=== PATIENT | female | born 2000 | race Caucasian/White ===

== ENCOUNTER 2019-12-22 16:08 | Emergency (ER) | payer SELFPAY ==
[2019-12-22 16:26] VITALS: BP 116/78
[2019-12-22] MEDS ORDERED: LIDOCAINE 1% INJ-PF (10 MG/ML) 30 ML SDV INJ ONE (17:08)
[2019-12-22] MEDS ORDERED: CEFTRIAXONE INJ 250 MG VIAL IM ONE (17:08)
[2019-12-22] MEDS ORDERED: DOXYCYCLINE HYCLATE 100 MG TABLET PO ONE (17:13)
--- NOTE | 2019-12-22 17:19 | ER Document Report ---
ED GI/ - General Chief Complaint: STD Exposure Stated Complaint: STD CHECK Time Seen by Provider: 12/22/19 17:04 Primary Care Provider: [facility] [Provider Group] - Follow up as needed [facility] [Provider Group] - Follow up as needed [facility] [Provider Group] - Follow up as needed Mode of Arrival: Ambulatory Information source: Patient Notes: 19-year-old female presented to ED for complaint of a contact called her stating they had chlamydia and she needed to get tested. She states she is asymptomatic but she is living with someone else and she needs to make sure that she does not have an infection. We will get urine for GC and chlamydia and treat the patient. She will call tomorrow to find the results and then have her significant other treated if appropriate. - HPI Patient complains to provider of: Other - Sexual contact positive for chlamydia Onset: Other - Is her last contact with this person was 6 months ago Quality of pain: No pain Pain Level: Denies Vaginal bleeding (Compared to normal period): None Associated symptoms: None Exacerbated by: Denies Relieved by: Denies Similar symptoms previously: No Recently seen / treated by doctor: No - Related Data Allergies/Adverse Reactions: clarithromycin [From Biaxin] Allergy (Verified 12/22/19 17:03) Past Medical History - General Information source: Patient - Social History Smoking Status: Never Smoker Chew tobacco use (# tins/day): No Frequency of alcohol use: Occasional Drug Abuse: None Lives with: Family Family History: Reviewed & Not Pertinent Patient has suicidal ideation: No Patient has homicidal ideation: No - Past Medical History Cardiac Medical History: Reports: None Pulmonary Medical History: Reports: None EENT Medical History: Reports: None Neurological Medical History: Reports: None Endocrine Medical History: Reports: None Renal/ Medical History: Reports: None Malignancy Medical History: Reports: None GI Medical History: Reports: None Musculoskeletal Medical History: Reports None Skin Medical History: Reports None Psychiatric Medical History: Reports: Hx Depression - anxiety Traumatic Medical History: Reports: None Infectious Medical History: Reports: None Surgical Hx: Negative Past Surgical History: Reports: None - Immunizations Immunizations up to date: Yes Hx Diphtheria, Pertussis, Tetanus Vaccination: Yes Review of Systems - Review of Systems Constitutional: No symptoms reported EENT: No symptoms reported Cardiovascular: No symptoms reported Respiratory: No symptoms reported Gastrointestinal: No symptoms reported Genitourinary: No symptoms reported Female Genitourinary: No symptoms reported Musculoskeletal: No symptoms reported Skin: No symptoms reported Hematologic/Lymphatic: No symptoms reported Neurological/Psychological: No symptoms reported -: Yes All other systems reviewed and negative Physical Exam - Vital signs Vitals: Temp Pulse Resp BP Pulse Ox 98.9 F 110 H 20 116/78 99 12/22/19 16:24 12/22/19 16:24 12/22/19 16:24 12/22/19 16:24 12/22/19 16:24 Interpretation: Normal - General General appearance: Appears well, Alert - HEENT Head: Normocephalic, Atraumatic Eyes: Normal Pupils: PERRL - Respiratory Respiratory status: No respiratory distress Chest status: Nontender Breath sounds: Normal Chest palpation: Normal - Cardiovascular Rhythm: Regular Heart sounds: Normal auscultation Murmur: No - Abdominal Inspection: Normal Distension: No distension Bowel sounds: Normal Tenderness: Nontender Organomegaly: No organomegaly - Back Back: Normal, Nontender - Extremities General upper extremity: Normal inspection, Nontender, Normal color, Normal ROM, Normal temperature General lower extremity: Normal inspection, Nontender, Normal color, Normal ROM, Normal temperature, Normal weight bearing. No: Rommel's sign - Neurological Neuro grossly intact: Yes Cognition: Normal Orientation: AAOx4 [place] Coma Scale Eye Opening: Spontaneous [place] Coma Scale Verbal: Oriented [place] Coma Scale Motor: Obeys Commands [place] Coma Scale Total: 15 Speech: Normal Motor strength normal: LUE, RUE, LLE, RLE Sensory: Normal - Psychological Associated symptoms: Normal affect, Normal mood - Skin Skin Temperature: Warm Skin Moisture: Dry Skin Color: Normal Course - Re-evaluation Re-evalutation: 12/22/19 17:17 A previous sexual contact called her and told her they were positive for chlamydia. Patient states she is asymptomatic. Will treat with Rocephin and doxycycline as patient is allergic to clarithromycin. Patient has been given Rocephin and doxycycline. 12/22/19 22:30 Patient was informed that her chlamydia is positive and that her significant other would need to be treated. - Vital Signs Vital signs: Temp Pulse Resp BP Pulse Ox 98.9 F 66 20 116/78 99 12/22/19 16:24 12/22/19 18:10 12/22/19 16:24 12/22/19 16:24 12/22/19 18:10 - Laboratory Laboratory results interpreted by me: 12/22/19 17:25 Chlamydia DNA (PCR) DETECTED H Discharge - Discharge Clinical Impression: STD exposure Condition: Stable Disposition: HOME, SELF-CARE Additional Instructions: You were seen today for exposure to chlamydia. You state you have no symptoms at this time. Your plain UA was negative for any signs of infection. Rocephin You have been given an injection of an antibiotic called Rocephin (ceftriaxone). Sometimes the injection must be combined with antibiotic pills. For some infections, such as an uncomplicated ear infection, Rocephin provides all the antibiotic that's needed. The antibiotic will be in your body for about two days. For serious infections, we usually repeat doses of Rocephin daily. Side effects are very unusual following a shot. Women may develop vaginal yeast infections, and babies can get yeast (thrush) in the mouth following the use of antibiotics. Contact your physician if you have symptoms with this medication. Allergy to this antibiotic can result in hives, wheezing, faintness, or itching. If symptoms of allergy occur, call the doctor at once DOXYCYCLINE: Doxycycline (Vibramycin, Doryx) is an antibiotic of the tetracycline family. This type of drug is useful for infections of the respiratory tract and genital tract, and is sometimes used for intestinal infections. Unlike most tetracyclines, doxycycline can be taken with food. It is longer acting, and (usually) less prone to side effects than regular tetracycline. Tetracycline antibiotics can stain immature teeth and SHOULD NOT BE TAKEN BY CHILDREN, NURSING MOTHERS, OR WOMEN. Tetracyclines can make you more prone to sunburn. Abdominal cramping, nausea, and diarrhea are occasional side effects. Women may experience vaginal yeast infections. Call the doctor at once if you develop hives, itching, shortness of breath, or lightheadedness. FOLLOW-UP CARE: If you have been referred to a physician for follow-up care, call the physicians office for an appointment as you were instructed or within the next two days. If you experience worsening or a significant change in your symptoms, notify the physician immediately or return to the Emergency Department at any time for re-evaluation. Prescriptions: Doxycycline Monohydrate 100 mg PO BID #14 capsule Referrals: [facility] [Provider Group] - Follow up as needed [facility] [Provider Group] - Follow up as needed [facility] [Provider Group] - Follow up as needed
[2019-12-22 17:39] LABS: APPEARANCE,URINE CLEAR; BILIRUBIN,URINE NEGATIVE (NEGATIVE); COLOR,URINE YELLOW; GLUCOSE, URINE NEGATIVE (NEGATIVE); KETONES,URINE NEGATIVE (NEGATIVE); LEUKOCYTE ESTERASE,URINE NEGATIVE (NEGATIVE); NITRITE,URINE NEGATIVE (NEGATIVE); PROTEIN,URINE NEGATIVE (NEGATIVE); UROBILINOGEN,URINE NEGATIVE mg/dL (<2.0)
[2019-12-22 19:22] LABS: CHLAM PCR DETECTED (NOT DETECT)
== END 2019-12-22 18:10 | disposition home or self-care (01) ==
LOC: ER 16:08
DX: A74.9 Chlamydial infection, unspecified (principal); Z88.1 Allergy status to other antibiotic agents
CPT/HCPCS: 99283; 96372; 87086; 81001; 87491; 87591; J3490; J0696

== ENCOUNTER 2020-01-27 14:02 | Emergency (ER) | payer SELFPAY ==
[2020-01-27 14:18] VITALS: BP 118/65
[2020-01-27 15:34] LABS: BACTERIA (WET MOUNT) 4+ BACTERIA SEEN; EPITHELIALS (WET MOUNT) 4+ EPITHELIALS SEEN; WBCS (WET MOUNT) 2+ WBCS SEEN; YEAST (WET MOUNT) YEAST SEEN
[2020-01-27 15:35] LABS: T.VAGINALIS (WET MOUNT) COULD NOT PERFORM
[2020-01-27 15:36] LABS: APPEARANCE,URINE SLIGHTLY-CLOUDY; BILIRUBIN,URINE NEGATIVE (NEGATIVE); COLOR,URINE YELLOW; GLUCOSE, URINE NEGATIVE (NEGATIVE); KETONES,URINE NEGATIVE (NEGATIVE); LEUKOCYTE ESTERASE,URINE NEGATIVE (NEGATIVE); NITRITE,URINE NEGATIVE (NEGATIVE); PROTEIN,URINE NEGATIVE (NEGATIVE); URINE SPECIFIC GRAVITY 1.029
[2020-01-27 17:03] LABS: CHLAM PCR NOT DETECTED (NOT DETECT)
--- NOTE | 2020-01-27 19:33 | ER Document Report ---
HPI - HPI Patient complains to provider of: Possible STD Time Seen by Provider: 01/27/20 14:40 Pain Level: Denies Context: 19-year-old female presents to the emergency room stating that she was diagnosed with chlamydia 1 month ago. States her ex-fianc called her last night told her he tested positive for chlamydia. States she is not been involved with him for over 3 months. States she has not had any sexual encounters since she was here last month. States she still has some itching in the vaginal area. Denies any discharge. Patient was treated for both gonorrhea chlamydia a month ago. Associated Symptoms: None Exacerbated by: Denies Relieved by: Denies Similar symptoms previously: Yes - Positive for chlamydia 1 month ago. Recently seen / treated by doctor: No - ROS Systems Reviewed and Negative: Yes All other systems reviewed and negative - CONSTITUTIONAL Constitutional: DENIES: Fever, Chills - NEURO Neurology: DENIES: Weakness - GASTROINTESTINAL Gastrointestinal: DENIES: Abdominal Pain, Black / Bloody Stools - URINARY Urinary: DENIES: Dysuria, Urgency, Frequency - REPRODUCTIVE LMP: 01/18/20 Reproductive: DENIES: : - DERM Skin Color: Normal Past Medical History - General Information source: Patient - Social History Smoking Status: Current Every Day Smoker Chew tobacco use (# tins/day): No Frequency of alcohol use: Occasional Drug Abuse: None Family History: Reviewed & Not Pertinent Patient has homicidal ideation: No Psychiatric Medical History: Reports: Hx Depression - anxiety Past Surgical History: Reports: Hx Oral Surgery - Immunizations Immunizations up to date: Yes Hx Diphtheria, Pertussis, Tetanus Vaccination: Yes Vertical Provider Document - CONSTITUTIONAL Agree With Documented VS: Yes Exam Limitations: No Limitations General Appearance: Mild Distress - INFECTION CONTROL TRAVEL OUTSIDE OF THE [place] IN LAST 30 DAYS: No - HEENT HEENT: Atraumatic, Conjuctival Injection - NECK Neck: Normal Inspection, Supple, Thyroid Normal - RESPIRATORY Respiratory: Breath Sounds Normal, No Respiratory Distress, Chest Non-Tender - CARDIOVASCULAR Cardiovascular: No Murmur, Tachycardia - GI/ABDOMEN Gastrointestinal: Abdomen Soft, Abdomen Non-Tender - REPRODUCTIVE Notes: Pelvic exam was not performed. - NEURO Level of Consciousness: Awake, Alert, Appropriate Motor/Sensory: No Motor Deficit, No Sensory Deficit - DERM Integumentary: Warm, Dry, No Rash Course - Re-evaluation Re-evalutation: 01/27/2020 14:55 Patient was offered the opportunity to self swab herself and urinate for a dirty and clean urine, which she agreed to. States she has done it that way in the past. Patient refused a pelvic exam. 01/27/20 15:00 Went to locate patient to give her her test results patient cannot be found in the lobby. 01/27/20 16:00 Nursing staff once lobby again to try to locate the patient the patient could not be found. 01/27/20 19:32 - Vital Signs Vital signs: Temp Pulse Resp BP Pulse Ox 98.1 F 108 H 16 118/65 100 01/27/20 14:16 01/27/20 14:16 01/27/20 14:16 01/27/20 14:16 01/27/20 14:16 - Laboratory Laboratory results interpreted by me: 01/27/20 14:57 Urine Urobilinogen 2.0 H Discharge - Discharge Clinical Impression: Bacterial vaginosis, Vaginal gallo Condition: Stable Disposition: ELOPED
== END 2020-01-27 17:51 | disposition left against medical advice (07) ==
LOC: ER 14:02
DX: N76.0 Acute vaginitis (principal); B96.89 Other specified bacterial agents as the cause of diseases classified elsewhere; B37.3 Candidiasis of vulva and vagina; Z20.2 Contact with and (suspected) exposure to infections with a predominantly sexual mode of transmission; F17.200 Nicotine dependence, unspecified, uncomplicated; Z53.20 Procedure and treatment not carried out because of patient's decision for unspecified reasons
CPT/HCPCS: 81001; 81025; 87210; 87491; 87591; 99281